=== PATIENT | female | born 1955 | race Caucasian/White ===

== ENCOUNTER 2017-10-08 20:08 | Emergency (ER) | payer OTHER, SELFPAY ==
[~2017-10-08] VITALS: Ht 154.9 cm; Wt 71.0 kg
[~2017-10-08 20:08] MED LIST: ASPI1TAB7 PO; P-EP-31 PO; SODI50DR NS; SULF-88 PO
[2017-10-08 21:34] LABS: BASOPHILS % (AUTO) 0.5 % (0.0-2.0); EOSINOPHILS % (AUTO) 3.7 % (1.0-6.0); HEMOGLOBIN 13.8 g/dL (12.0-16.0); LYMPHOCYTES # (AUTO) 2.2 K/uL (1.0-4.8); LYMPHOCYTES % (AUTO) 25.8 % (22.0-44.0); MEAN CORPUSCULAR HEMOGLOBIN 30.5 pg (26.0-34.0); MEAN CORPUSCULAR HGB CONC 34.4 G/dL (31.0-37.0); MEAN CORPUSCULAR VOLUME 89 fL (80-100); MONOCYTES # (AUTO) 0.6 K/uL (0.1-1.0); MONOCYTES % (AUTO) 6.7 % (2.0-9.0); NEUTROPHILS # (AUTO) 5.5 K/uL (1.8-7.7); NEUTROPHILS % (AUTO) 63.3 % (40.0-70.0); PLATELET COUNT (AUTO) 277 K/uL (150-450); RED BLOOD CELL COUNT(AUTO) 4.51 MIL/uL (4.00-5.20); RED CELL DISTRIBUTION WIDTH 14.1 % (11.5-14.5)
[2017-10-08 21:48] LABS: ANION GAP 10 mmol/L (8-16); CALCIUM, TOTAL 8.8 mg/dL (8.8-10.5); CARBON DIOXIDE 26 mmol/L (22-29); CHLORIDE 103 mmol/L (98-107); CREATININE 0.57 mg/dL (0.60-1.30); GLOMERULAR FILTR. RATE CALC > 60 mL/min (>60); GLUCOSE,RANDOM 96 mg/dL (70-110); POTASSIUM 3.7 mmol/L (3.5-5.1); SODIUM SERUM 139 mmol/L (136-145); UREA NITROGEN, BLOOD 19 mg/dL (7-18)
[2017-10-08 21:54] LABS: ALANINE AMINOTRANSFERASE 27 U/L (12-78); ALBUMIN 3.7 g/dL (3.4-5.0); ALKALINE PHOSPHATASE 66 U/L (46-116); ASPARTATE AMINOTRANSFERASE 24 U/L (15-37); BILIRUBIN,TOTAL 0.3 mg/dL (0.1-1.0); LIPASE 80 U/L (73-393); TOTAL PROTEIN, SERUM 7.8 g/dL (6.4-8.2)
[2017-10-08 22:51] VITALS: BP 167/102
== END 2017-10-08 22:53 | disposition home or self-care (01) ==
LOC: EMS 20:10
DX: R51 Headache (principal); I10 Essential (primary) hypertension; J02.9 Acute pharyngitis, unspecified; R20.0 Anesthesia of skin; R53.81 Other malaise
CPT/HCPCS: 70450; 93005; 99285

== ENCOUNTER 2023-04-28 15:07 | Emergency (ER) | payer MEDICARE, OTHER ==
[~2023-04-28] VITALS: Ht 154.9 cm; Wt 72.3 kg
[2023-04-28 15:09] VITALS: TEMP 97.9
[2023-04-28] MEDS ORDERED: KETOROLAC TROMETHAMINE 30 MG/ML VIAL IM ONE (16:00)
[2023-04-28] MEDS ORDERED: LIDOCAINE 5% TRANSDERMAL PATCH TD ONE (16:00)
[2023-04-28] MEDS ORDERED: IBUP-1492 PO (16:17)
[2023-04-28 16:35] VITALS: BP 126/72; PULSE 70; RESP 16
== END 2023-04-28 16:48 | disposition home or self-care (01) ==
LOC: EMS 15:14
DX: M54.2 Cervicalgia (principal); M54.50 Low back pain, unspecified; R07.81 Pleurodynia; I10 Essential (primary) hypertension; Z88.8 Allergy status to other drugs, medicaments and biological substances
CPT/HCPCS: 99283; 71101; 96372; J1885